=== PATIENT | female | born 1965 | race American Indian/Alaskan Native ===

== ENCOUNTER 2019-07-30 13:04 | Inpatient (IN) | payer OTHER ==
--- NOTE | 2019-07-30 13:50 | Event Note ---
ED Screening Note Date of service: 07/30/19 Time: 13:43 ED Screening Note: 53 y/o female comes in for right side weakness that started yesterday morning. Had stent placed in heart in 2014. 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 This initial assessment/diagnostic orders/clinical plan/treatment(s) is/are subject to change based on patients health status, clinical progression and re- assessment by fellow clinical providers in the ED. Further treatment and workup at subsequent clinical providers discretion. Patient/guardian urged not to elope from the ED as their condition may be serious if not clinically assessed and managed. Initial orders include:
[2019-07-30 14:54] LABS: Creatine Kinase MB 1.1 ng/mL (0.0-4.0)
[2019-07-30 15:03] LABS: Basophils # (Auto) 0.1 K/mm3 (0.0-0.1); Basophils % (Auto) 1.2 % (0.0-1.8); Eosinophils # (Auto) 0.1 K/mm3 (0.0-0.4); Hematocrit 43.6 % (30.3-42.9); Hemoglobin 14.8 gm/dl (10.1-14.3); Lymphocytes % (Auto) 25.6 % (13.4-35.0); Mean Corpuscular HGB Conc 34 % (30-34); Mean Corpuscular Volume 94 fl (79-97); Monocytes # (Auto) 0.6 K/mm3 (0.0-0.8); Platelet Count 244 K/mm3 (140-440); Red Blood Count 4.63 M/mm3 (3.65-5.03); Red Cell Distribution Width 13.7 % (13.2-15.2)
[2019-07-30 15:15] LABS: INR 0.95 (0.87-1.13)
[2019-07-30 15:16] LABS: Partial Thromboplastin Time 34.4 Sec. (24.2-36.6); Thrombin Time 15.6 Sec. (15.1-19.6)
[2019-07-30 16:00] LABS: Amphetamine Screen,Urine PRESUMPTIVE NEGATIVE; Benzodiazepines Screen,Urine PRESUMPTIVE NEGATIVE; Cannabinoid Screen,Urine PRESUMPTIVE NEGATIVE; Cocaine Screen,Urine PRESUMPTIVE NEGATIVE; Methadone Screen,Urine PRESUMPTIVE NEGATIVE; Opiate Screen,Urine PRESUMPTIVE NEGATIVE
[2019-07-30 16:06] LABS: Bacteria,Urine 1+ /HPF (Negative); Bilirubin,Urine NEG (Negative); Blood,Urine SM (Negative); Color,Urine Straw (Yellow); Protein,Urine <15 mg/dL mg/dL (Negative); Urobilinogen,Urine < 2.0 mg/dL (<2.0)
[2019-07-30 16:19] LABS: WBC,Urine < 1.0 /HPF (0.0-6.0)
--- NOTE | 2019-07-30 16:30 | Cat Scan Report ---
CT HEAD WITHOUT CONTRAST INDICATION / CLINICAL INFORMATION: right side weakness. TECHNIQUE: Axial imaging performed from the skull apex through the skull base without the use of cont rast. Sagittal and coronal reformatted images. All CT scans at this location are performed using CT dose reduction for ALARA by means of automated exposure control. COMPARISON: None FINDINGS: CEREBRAL PARENCHYMA: Chronic focal infarct in the right parietal white matter measures 1.3 x 0.6 cm. Chronic infarct in the right caudate nucleus measures 5 mm. The remaining brain parenchyma demonstrat es normal density. The field-white interface is well-defined. HEMORRHAGE: None. EXTRA-AXIAL SPACES: Normal in size and morphology for the patient's age. VENTRICULAR SYSTEM: Normal in size and morphology for the patient's age. MIDLINE SHIFT OR HERNIATION: None. CEREBELLUM / BRAINSTEM: No significant abnormality. CALVARIUM: No significant abnormality. ORBITS: Normal as visualized. PARANASAL SINUSES / MASTOID AIR CELLS: Normal as visualized. SOFT TISSUES of HEAD: No significant abnormality. ADDITIONAL FINDINGS: None. IMPRESSION: Chronic focal infarcts as described above. No acute intracranial process is identified. Signer Name: Ryley Gerard Jr, MD Signed: 07/30/2019 4:25 PM Workstation Name: [id number]
--- NOTE | 2019-07-30 16:51 | Emergency Department Report ---
ED Neuro Deficit HPI - General Chief Complaint: Neuro Symptoms/Deficit Stated Complaint: RT SIDE WEAKNESS Time Seen by Provider: 07/30/19 13:42 Source: patient Mode of arrival: Ambulatory Limitations: No Limitations - History of Present Illness Initial Comments: 53-year-old -Northern Irish female since emergency department complaining of a 2 day history of reported right sided weakness primarily in the right hand and right leg below the knee. States he gets the sensation that she is drunk but reports no blurred vision, chest pain, shortness of breath, fevers, chills, sweats, neck pain, rashes, nausea, vomiting, incontinence. -: days(s) (2) Location: right leg Presenting Symptoms: Present: Weak/Paralyzed One Side (right side) History of same: No Place: home Improves With: none Worsens With: none On Anticoagulants: No Associated Symptoms: denies: chest pain, cough, diaphoresis, loss of appetite, malise, nausea/vomiting, syncope, weakness - Related Data Allergies/Adverse Reactions: Allergies Allergy/AdvReac Type Severity Reaction Status Date / Time No Known Allergies Allergy Unverified 07/30/19 13:44 ED Review of Systems ROS: Stated complaint: RT SIDE WEAKNESS Other details as noted in HPI Comment: All other systems reviewed and negative ED Past Medical Hx - Past Medical History Hx Heart Attack/AMI: Yes (1 stent) - Surgical History Past Surgical History?: Yes Hx Coronary Stent: Yes - Social History Smoking Status: Never Smoker Substance Use Type: None ED Neuro Physical Exam - General Limitations: No Limitations General appearance: alert, in no apparent distress Suspected Stroke: No - Head Head exam: Present: atraumatic, normocephalic - Eye Eye exam: Present: normal appearance, PERRL, EOMI Pupils: Present: normal accommodation - ENT ENT exam: Present: normal exam, normal orophraynx, mucous membranes moist, TM's normal bilaterally - Neck Neck exam: Present: normal inspection - Respiratory Respiratory exam: Present: normal lung sounds bilaterally. Absent: respiratory distress - Cardiovascular Cardiovascular Exam: Present: regular rate, normal rhythm. Absent: systolic murmur, diastolic murmur, rubs, gallop - GI/Abdominal GI/Abdominal exam: Present: soft, normal bowel sounds - Extremities Exam Extremities exam: Present: normal inspection - Back Exam Back exam: Present: normal inspection. Absent: CVA tenderness (R), CVA tenderness (L), paraspinal tenderness - Neurological Exam Neurological exam: Present: alert, oriented X3, CN II-XII intact, reflexes normal, other (no clonus, no Babinski. Normal [id number]. Strength to the right lower extremity is fair. Gait is right side favor and requires assistance) - Psychiatric Psychiatric exam: Present: normal affect, normal mood - Skin Skin exam: Present: warm, dry, intact, normal color. Absent: rash ED Course Vital Signs 07/30/19 07/30/19 07/30/19 13:10 15:14 15:58 Temperature 98.6 F 98.7 F Pulse Rate 61 63 69 Respiratory 16 18 12 Rate Blood Pressure 154/95 Blood Pressure 156/104 162/94 [Right] O2 Sat by Pulse 100 98 100 Oximetry 07/30/19 17:03 Temperature Pulse Rate 60 Respiratory 12 Rate Blood Pressure Blood Pressure 163/98 [Right] O2 Sat by Pulse 100 Oximetry - Consultations Consultation #1: 07/30/19 16:57 Case discussed with hospitalist Dr. Loera for admission states he will come and see the patient at bedside - Lab Data Result diagrams: 07/30/19 13:59 Lab Results 07/30/19 07/30/19 07/30/19 Range/Units 13:48 13:48 13:59 WBC 11.7 H (4.5-11.0) K/mm3 RBC 4.63 (3.65-5.03) M/mm3 Hgb 14.8 H (10.1-14.3) gm/dl Hct 43.6 H (30.3-42.9) % MCV 94 (79-97) fl MCH 32 (28-32) pg MCHC 34 (30-34) % RDW 13.7 (13.2-15.2) % Plt Count 244 (140-440) K/mm3 Lymph % (Auto) 25.6 (13.4-35.0) % [place] % (Auto) 5.0 (0.0-7.3) % Eos % (Auto) 1.0 (0.0-4.3) % Baso % (Auto) 1.2 (0.0-1.8) % Lymph # 3.0 (1.2-5.4) K/mm3 [place] # 0.6 (0.0-0.8) K/mm3 Eos # 0.1 (0.0-0.4) K/mm3 Baso # 0.1 (0.0-0.1) K/mm3 Seg Neutrophils % 67.2 (40.0-70.0) % Seg Neutrophils # 7.9 H (1.8-7.7) K/mm3 PT (12.2-14.9) Sec. INR (0.87-1.13) APTT (24.2-36.6) Sec. Thrombin Time (15.1-19.6) Sec. POC Glucose (70-105) Total Creatine Kinase (30-135) units/L CK-MB (CK-2) (0.0-4.0) ng/mL CK-MB (CK-2) Rel Index (0-4) Troponin T (0.00-0.029) ng/mL Urine Color Straw (Yellow) Urine Turbidity Clear (Clear) Urine pH 7.0 (5.0-7.0) Ur Specific [place] 1.005 (1.003-1.030) Urine Protein <15 mg/dl (Negative) mg/dL Urine Glucose (UA) Neg (Negative) mg/dL Urine Ketones Neg (Negative) mg/dL Urine Blood Sm (Negative) Urine Nitrite Neg (Negative) Urine Bilirubin Neg (Negative) Urine Urobilinogen < 2.0 (<2.0) mg/dL Ur Leukocyte Esterase Neg (Negative) Urine WBC (Auto) < 1.0 (0.0-6.0) /HPF Urine RBC (Auto) 1.0 (0.0-6.0) /HPF U Epithel Cells (Auto) < 1.0 (0-13.0) /HPF Urine Bacteria (Auto) 1+ (Negative) /HPF Urine Opiates Screen Presumptive negative Urine Methadone Screen Presumptive negative Ur Barbiturates Screen Presumptive negative Ur Phencyclidine Scrn Presumptive negative Ur Amphetamines Screen Presumptive negative U Benzodiazepines Scrn Presumptive negative Urine Cocaine Screen Presumptive negative U Marijuana (THC) Screen Presumptive negative Drugs of Abuse Note Disclamer 07/30/19 07/30/19 07/30/19 Range/Units 13:59 13:59 15:28 WBC (4.5-11.0) K/mm3 RBC (3.65-5.03) M/mm3 Hgb (10.1-14.3) gm/dl Hct (30.3-42.9) % MCV (79-97) fl MCH (28-32) pg MCHC (30-34) % RDW (13.2-15.2) % Plt Count (140-440) K/mm3 Lymph % (Auto) (13.4-35.0) % [place] % (Auto) (0.0-7.3) % Eos % (Auto) (0.0-4.3) % Baso % (Auto) (0.0-1.8) % Lymph # (1.2-5.4) K/mm3 [place] # (0.0-0.8) K/mm3 Eos # (0.0-0.4) K/mm3 Baso # (0.0-0.1) K/mm3 Seg Neutrophils % (40.0-70.0) % Seg Neutrophils # (1.8-7.7) K/mm3 PT 12.4 (12.2-14.9) Sec. INR 0.95 (0.87-1.13) APTT 34.4 (24.2-36.6) Sec. Thrombin Time 15.6 (15.1-19.6) Sec. POC Glucose 99 (70-105) Total Creatine Kinase 80 (30-135) units/L CK-MB (CK-2) 1.1 (0.0-4.0) ng/mL CK-MB (CK-2) Rel Index 1.3 (0-4) Troponin T < 0.010 (0.00-0.029) ng/mL Urine Color (Yellow) Urine Turbidity (Clear) Urine pH (5.0-7.0) Ur Specific [place] (1.003-1.030) Urine Protein (Negative) mg/dL Urine Glucose (UA) (Negative) mg/dL Urine Ketones (Negative) mg/dL Urine Blood (Negative) Urine Nitrite (Negative) Urine Bilirubin (Negative) Urine Urobilinogen (<2.0) mg/dL Ur Leukocyte Esterase (Negative) Urine WBC (Auto) (0.0-6.0) /HPF Urine RBC (Auto) (0.0-6.0) /HPF U Epithel Cells (Auto) (0-13.0) /HPF Urine Bacteria (Auto) (Negative) /HPF Urine Opiates Screen Urine Methadone Screen Ur Barbiturates Screen Ur Phencyclidine Scrn Ur Amphetamines Screen U Benzodiazepines Scrn Urine Cocaine Screen U Marijuana (THC) Screen Drugs of Abuse Note - Medical Decision Making 53-year-old Northern [place] female past medical history of cardiovascular disease and myocardial infarction of history of a stent placement presents complaining of a couple day history of weakness of the right hand and below the right knee and sensation feel drunk since the onset. States that her symptoms have been non- progressing but no no improvement. A CT scan show chronic of chronic foci and her laboratory data was essentially benign patient was evaluated by the attending Dr. baldwin due to the nature of antalgic gait to admit for further violation treatment option. The patient present time does not have an outpatient follow-up Critical care attestation.: If time is entered above; I have spent that time in minutes in the direct care of this critically ill patient, excluding procedure time. ED Disposition Clinical Impression: Ataxia Disposition: DC-[id number] OP ADMIT IP TO THIS HOSP Is pt being admited?: No Does the pt Need Aspirin: No Condition: Stable
--- NOTE | 2019-07-30 20:50 | History and Physical Report ---
History of Present Illness Date of examination: 07/30/19 Date of admission: 07/30/19 18:31 Medications and Allergies Allergies Allergy/AdvReac Type Severity Reaction Status Date / Time No Known Allergies Allergy Unverified 07/30/19 13:44 Exam - Constitutional Vitals: Temp Pulse Resp BP Pulse Ox 98.1 F 66 18 165/90 100 07/30/19 19:19 07/30/19 19:19 07/30/19 19:19 07/30/19 19:19 07/30/19 19:19 Results - Labs CBC & Chem 7: 07/30/19 13:59 Labs: Laboratory Last Values WBC 11.7 K/mm3 (4.5-11.0) H 07/30/19 13:59 RBC 4.63 M/mm3 (3.65-5.03) 07/30/19 13:59 Hgb 14.8 gm/dl (10.1-14.3) H 07/30/19 13:59 Hct 43.6 % (30.3-42.9) H 07/30/19 13:59 MCV 94 fl (79-97) 07/30/19 13:59 MCH 32 pg (28-32) 07/30/19 13:59 MCHC 34 % (30-34) 07/30/19 13:59 RDW 13.7 % (13.2-15.2) 07/30/19 13:59 Plt Count 244 K/mm3 (140-440) 07/30/19 13:59 Lymph % (Auto) 25.6 % (13.4-35.0) 07/30/19 13:59 [place] % (Auto) 5.0 % (0.0-7.3) 07/30/19 13:59 Eos % (Auto) 1.0 % (0.0-4.3) 07/30/19 13:59 Baso % (Auto) 1.2 % (0.0-1.8) 07/30/19 13:59 Lymph # 3.0 K/mm3 (1.2-5.4) 07/30/19 13:59 [place] # 0.6 K/mm3 (0.0-0.8) 07/30/19 13:59 Eos # 0.1 K/mm3 (0.0-0.4) 07/30/19 13:59 Baso # 0.1 K/mm3 (0.0-0.1) 07/30/19 13:59 Seg Neutrophils % 67.2 % (40.0-70.0) 07/30/19 13:59 Seg Neutrophils # 7.9 K/mm3 (1.8-7.7) H 07/30/19 13:59 PT 12.4 Sec. (12.2-14.9) 07/30/19 13:59 INR 0.95 (0.87-1.13) 07/30/19 13:59 APTT 34.4 Sec. (24.2-36.6) 07/30/19 13:59 Thrombin Time 15.6 Sec. (15.1-19.6) 07/30/19 13:59 POC Glucose 99 (70-105) 07/30/19 15:28 Total Creatine Kinase 80 units/L (30-135) 07/30/19 13:59 CK-MB (CK-2) 1.1 ng/mL (0.0-4.0) 07/30/19 13:59 CK-MB (CK-2) Rel Index 1.3 (0-4) 07/30/19 13:59 Troponin T < 0.010 ng/mL (0.00-0.029) 07/30/19 13:59 Urine Color Straw (Yellow) 07/30/19 13:48 Urine Turbidity Clear (Clear) 07/30/19 13:48 Urine pH 7.0 (5.0-7.0) 07/30/19 13:48 Ur Specific [place] 1.005 (1.003-1.030) 07/30/19 13:48 Urine Protein <15 mg/dl mg/dL (Negative) 07/30/19 13:48 Urine Glucose (UA) Neg mg/dL (Negative) 07/30/19 13:48 Urine Ketones Neg mg/dL (Negative) 07/30/19 13:48 Urine Blood Sm (Negative) 07/30/19 13:48 Urine Nitrite Neg (Negative) 07/30/19 13:48 Urine Bilirubin Neg (Negative) 07/30/19 13:48 Urine Urobilinogen < 2.0 mg/dL (<2.0) 07/30/19 13:48 Ur Leukocyte Esterase Neg (Negative) 07/30/19 13:48 Urine WBC (Auto) < 1.0 /HPF (0.0-6.0) 07/30/19 13:48 Urine RBC (Auto) 1.0 /HPF (0.0-6.0) 07/30/19 13:48 U Epithel Cells (Auto) < 1.0 /HPF (0-13.0) 07/30/19 13:48 Urine Bacteria (Auto) 1+ /HPF (Negative) 07/30/19 13:48 Urine Opiates Screen Presumptive negative 07/30/19 13:48 Urine Methadone Screen Presumptive negative 07/30/19 13:48 Ur Barbiturates Screen Presumptive negative 07/30/19 13:48 Ur Phencyclidine Scrn Presumptive negative 07/30/19 13:48 Ur Amphetamines Screen Presumptive negative 07/30/19 13:48 U Benzodiazepines Scrn Presumptive negative 07/30/19 13:48 Urine Cocaine Screen Presumptive negative 07/30/19 13:48 U Marijuana (THC) Screen Presumptive negative 07/30/19 13:48 Drugs of Abuse Note Disclamer 07/30/19 13:48
[2019-07-30] MEDS ORDERED: ACETAMINOPHEN 325 MG TAB PO PRN (20:52)
[2019-07-30] MEDS ORDERED: ONDANSETRON 4 MG/2 ML INJ IV PRN (20:52)
[2019-07-30] MEDS ORDERED: HYDROmorphone 1 MG/1 ML INJ IV PRN (20:53)
[2019-07-30] MEDS ORDERED: oxyCODONE /ACETAMINOPHEN 5-325MG TAB PO PRN (20:53)
[2019-07-30] MEDS: LOSARTAN 50 MG TAB PO SCH (21:50)
[2019-07-30] MEDS: ASPIRIN 325 MG TAB PO SCH (21:50)
[2019-07-30] MEDS: SODIUM CHLORIDE 0.9% 1000 ML 1,000 ML IV SCH (21:50)
[2019-07-30] MEDS: FAMOTIDINE 20 MG TAB PO SCH (21:50)
[2019-07-31 05:26] LABS: Basophils # (Auto) 0.1 K/mm3 (0.0-0.1); Basophils % (Auto) 0.5 % (0.0-1.8); Eosinophils # (Auto) 0.2 K/mm3 (0.0-0.4); Eosinophils % (Auto) 2.2 % (0.0-4.3); Hematocrit 38.1 % (30.3-42.9); Lymphocytes # (Auto) 3.2 K/mm3 (1.2-5.4); Lymphocytes % (Auto) 30.3 % (13.4-35.0); Mean Corpuscular HGB Conc 34 % (30-34); Mean Corpuscular Volume 94 fl (79-97); Monocytes # (Auto) 0.7 K/mm3 (0.0-0.8); Monocytes % (Auto) 7.2 % (0.0-7.3); Platelet Count 205 K/mm3 (140-440); Red Blood Count 4.04 M/mm3 (3.65-5.03); Red Cell Distribution Width 13.7 % (13.2-15.2)
[2019-07-31 06:57] LABS: Alanine Aminotransferase 9 units/L (7-56); Albumin 3.7 g/dL (3.9-5); BUN/Creatinine Ratio 13; Blood Urea Nitrogen 10 mg/dL (7-17); Chol/HDL Ratio 4.05 %; HDL Cholesterol 39 mg/dL (40-59); Hemolysis Index 7; LDL Cholesterol,Direct 106 mg/dL (50-130)
--- NOTE | 2019-07-31 06:59 | Event Note ---
Date: 07/30/19 See H/p in reports CVA-w/u
--- NOTE | 2019-07-31 07:55 | History and Physical Report ---
CHIEF COMPLAINT: Right-sided weakness for 2 days. HISTORY OF PRESENT ILLNESS: A 53-year-old -[place] female with history of coronary artery disease and status post one stent, comes in for right-sided weakness of 2 days' duration. The patient has difficulty walking and unsteady while walking. She feels as if she is drunk. No nausea. No vomiting. No nasal regurgitation of fluids. Has some weakness in the right upper and right lower extremity. PAST MEDICAL HISTORY: Coronary artery disease with stent. PAST SURGICAL HISTORY: One stent. SOCIAL HISTORY: Does not smoke. No alcohol. No recreational drugs. FAMILY HISTORY: Hypertension. REVIEW OF SYSTEMS: Significant for right upper and right lower extremity weakness, which is nearly resolving. Otherwise, review of systems negative. PHYSICAL EXAMINATION: GENERAL: Middle-aged female, cooperative during examination. VITAL SIGNS: Blood pressure is 156/100, temperature 98.5, pulse is 60 and respirations are 18. HEENT: Unremarkable. Pupils equal and reactive. NECK: Supple, no lymphadenopathy, no thyromegaly. LUNGS: Clear to auscultation and percussion. Good air entry. CARDIOVASCULAR: S1, S2 heard. No gallop, no murmur, no rub. Apical impulse in left fifth intercostal space and midclavicular line. ABDOMEN: Soft and benign. No hepatosplenomegaly. No guarding, no rigidity. Hernial orifices are normal. EXTREMITIES: Good pedal pulses. No pedal edema. CENTRAL NERVOUS SYSTEM: Alert and oriented x 4. Slight weakness on the right upper and right lower extremity. Able to walk. Power is about 4+/5 in both right upper and right lower extremities. DIAGNOSTIC DATA: EKG reviewed, normal sinus rhythm, no acute ST-T wave changes. Head CT, no acute changes. ASSESSMENT AND PLAN: 1. Cerebrovascular accident workup. The patient has slight weakness. MRI, MRA, carotid duplex scan and echocardiogram ordered. Neurology consult requested. 2. Hypertension. Losartan initiated. 3. Coronary artery disease. Aspirin 81 mg p.o. daily to continue. 4. Deep venous thrombosis prophylaxis. Lovenox 40 mg subcutaneous daily. JOB# [id number] VSM/NTS NELDAD
--- NOTE | 2019-07-31 10:12 | Vascular Lab Report ---
"DUPLEX DOPPLER ULTRASOUND CAROTID, BILATERAL INDICATION: stroke. FINDINGS: RIGHT CAROTID: No significant atherosclerotic plaque. Right ICA peak systolic velocity: 77 cm/sec. Right Vertebral Artery: Antegrade flow. LEFT CAROTID: No significant atherosclerotic plaque. Left ICA peak systolic velocity: 65 cm/sec. Left Vertebral Artery: Antegrade flow. IMPRESSION: 1. Right Internal Carotid Artery: Less than 50% diameter stenosis. 2. Left Internal Carotid Artery: Less than 50% diameter stenosis. Velocity criteria are extrapolated from diameter data as defined by the Society of Radiologists in [place] [facility] [facility] Consensus Conference, Radiology 2003; 229;340-346. Degree of Stenosis (%) || ICA PSV (cm/sec) || Plaque estimate (%) || ICA/CCA PSV Ratio Normal <125 None <2.0 <50 <125 <50 <2.0 50-69 125-230 50 2.0-4.0 70 but less than 100 >230 50 >4.0 Near occlusion High, low, or none visible variable Total occlusion None visible; no lumen N/A Signer Name: Napoleon Barth MD Signed: 07/31/2019 10:08 AM Workstation Name: [id number]"
[2019-07-31] MEDS ORDERED: FLU VACC QUAD 2019-20 (3 YR UP)/PF 60 MCG/0.5 ML SYRINGE IM ONE (11:00)
--- NOTE | 2019-07-31 12:41 | Magnetic Resonance Report ---
MRI BRAIN WITHOUT CONTRAST INDICATION / CLINICAL INFORMATION: stroke. TECHNIQUE: Multisequence, multiplanar images were obtained. COMPARISON: CT head performed 07/30/2019 FINDINGS: CEREBRAL and CEREBELLAR HEMISPHERES: A 7 mm focus of diffusion restriction is identified in the poste rior limb of the left internal capsule on diffusion image 17. No other areas of ischemia are identifi ed. Chronic focal infarcts involving the head of the right caudate nucleus and right parietal periven tricular white matter are again noted. The remaining brain parenchyma demonstrates normal signal on a ll sequences. No evidence of mass or mass effect. No midline shift. No acute hemorrhage. No extra-a xial fluid collection. VENTRICLES: Normal in size and configuration for age. VISUALIZED ORBITS: No significant abnormality. VISUALIZED PARANASAL SINUSES: Minimal mucosal thickening is noted in the right frontal sinus and ethm oid air cells. The remaining sinuses and mastoid air cells are clear. ADDITIONAL FINDINGS: None. IMPRESSION: 7 mm subacute ischemic infarct in the posterior limb of the left internal capsule. Chronic focal infarcts in the right caudate nucleus and right parietal periventricular white matter. Minimal chronic sinus disease. Signer Name: Ryley Gerard Jr, MD Signed: 07/31/2019 12:36 PM Workstation Name: [id number]
[2019-07-31] MEDS: ASPIRIN 325 MG TAB PO SCH (12:59)
[2019-07-31] MEDS: FAMOTIDINE 20 MG TAB PO SCH ×2 (12:59→22:54)
[2019-07-31] MEDS: LOSARTAN 50 MG TAB PO SCH (12:59)
[2019-07-31] MEDS: SODIUM CHLORIDE 0.9% 1000 ML 1,000 ML IV SCH (13:02)
--- NOTE | 2019-07-31 18:24 | Consultation ---
History of Present Illness Consult date: 07/31/19 Reason for Consult: Stroke Chief complaint: Right sided weakness History of present illness: Patient is 53-year-old woman with a history of coronary artery disease, and hypertension. She presents with a 2 day history of right-sided weakness. She states that on her way to work 2 days ago, she began to experience right leg weakness. Later in the day she also noted that she was having difficulty writing, and her right leg weakness had increased. Patient ultimately came to the ER for evaluation. Patient was not on any antihypertensive medications, and was unaware that she had chronic hypertension. She was not on aspirin or Plavix. Patient also has a history of smoking. Past History Past Medical History: CAD, hypertension Social history: smoking Family history: CAD Medications and Allergies Allergies Allergy/AdvReac Type Severity Reaction Status Date / Time No Known Allergies Allergy Unverified 07/30/19 13:44 Active Meds: Active Medications Acetaminophen (Tylenol) 650 mg PO Q4H PRN PRN Reason: Pain MILD(1-3)/Fever >100.5/SANTIAGO Aspirin (Aspirin) 325 mg PO QDAY [facility] Last Admin: 07/31/19 12:59 Dose: 325 mg Documented by: Atorvastatin Calcium (Lipitor) 40 mg PO QHS [facility] Last Admin: 07/30/19 21:50 Dose: 40 mg Documented by: Enoxaparin Sodium (Lovenox) 40 mg SUB-Q QDAY@2200 [facility] Famotidine (Pepcid) 20 mg PO BID [facility] Last Admin: 07/31/19 12:59 Dose: 20 mg Documented by: Hydromorphone HCl (Dilaudid) 0.5 mg IV Q3H PRN PRN Reason: Pain , Severe (7-10) Losartan Potassium (Cozaar) 50 mg PO QDAY [facility] Last Admin: 07/31/19 12:59 Dose: 50 mg Documented by: Ondansetron HCl (Zofran) 4 mg IV Q8H PRN PRN Reason: Nausea And Vomiting Oxycodone/Acetaminophen (Percocet 5/325) 1 tab PO Q6H PRN PRN Reason: Pain, Moderate (4-6) Sodium Chloride (Sodium Chloride Flush Syringe 10 Ml) 10 ml IV BID [facility] Last Admin: 07/31/19 13:03 Dose: 10 ml Documented by: Sodium Chloride (Sodium Chloride Flush Syringe 10 Ml) 10 ml IV PRN PRN PRN Reason: LINE FLUSH Review of Systems All systems: negative Neurological: weakness Physical Examination - Vital Signs Vital Signs: Vital Signs Temp Pulse Resp BP Pulse Ox 98.6 F 61 16 154/95 100 07/30/19 13:10 07/30/19 13:10 07/30/19 13:10 07/30/19 13:10 07/30/19 13:10 - Physical Exam Narrative exam: Patient is awake, alert, oriented 4, follows complex commands. Visual lopez full, pupils equal, round, reactive to light, EOMI, no facial weakness noted, tongue midline, bilaterally intact light touch. Bilaterally intact to light touch in all extremities. 4/5 strength in right upper and lower extremity, 5/5 strength in left upper and lower extremity. 2+ reflexes throughout. Bila terally intact to finger to nose and heel to ordoñez. No dysarthria or aphasia noted. - Constitutional General appearance: comfortable - EENT EENT: Present: ATNC, PERRL, mucous membranes moist, hearing intact, vision intact - Respiratory Respiratory: Present: lungs clear, normal breath sounds - Cardiovascular Cardiovascular: Present: regular rate, normal S1, normal S2 Extremities: Present: no clubbing, cyanosis, no inflammation - Gastrointestinal Gastrointestinal: Present: normoactive bowel sounds, soft, non-tender - Integumentary Integumentary: Present: normal - Musculoskeletal Musculoskeletal: Present: no fluid collection, no pain - Psychiatric Psychiatric: Present: mood/affect appropriate - Level of Consciousness 1a. Level of Consciousness: alert/keenly responsive - LOC Questions 1b. LOC Questions: answers both correctly - LOC Command 1c. LOC Commands: performs tasks correctly - Best Gaze 2. Best Gaze: normal - Visual 3. Visual: no visual loss - Facial Palsy 4. Facial Palsy: normal symmetrical movement - Motor Arm 5a. Motor Arm Left: no drift 5b. Motor Arm Right: no drift - Motor Leg 6a. Motor Leg Left: no drift 6b. Motor Leg Right: no drift - Limb Ataxia 7. Limb Ataxia: absent - Sensory 8. Sensory: normal - Best Language 9. Best Language: no aphasia - Dysarthria 10. Dysarthria: normal - Extinction and Inattention 11. Extinction/Inattention: no abnormality - Scoring Total Score: 0 Stroke Severity: No Stroke Symptoms Results - Laboratory Findings CBC and BMP: 07/31/19 04:36 07/31/19 04:36 Abnormal Lab Findings: Abnormal Labs 07/30/19 07/31/19 13:59 04:36 WBC 11.7 H Hgb 14.8 H Hct 43.6 H Seg Neutrophils # 7.9 H Albumin 3.7 L HDL Cholesterol 39 L Assessment and Plan Patient is 53-year-old woman with a history of coronary artery disease, and hypertension, who presents with a 2 day history of right upper and lower extremity weakness. According the patient's clinical findings, the patient has had an acute ischemic stroke, as is evidenced on MRI. Plan: 1. Stroke - MRI brain revealed left subcortical stroke, likely lacunar. Carotid ultrasound did not reveal any significant stenosis. Echocardiogram pending. We'll check CTA head for any intracranial atherosclerosis. Start patient on aspirin 81 mg daily and Plavix 75 mg daily. Continue dual ant iplatelet therapy with aspirin and Plavix for 1 month, after which Plavix can be stopped. Risks and benefits were discussed with starting both medications, and patient agreed to start both medications. - LDL 106. Cont. statin. Goal LDL <70. Patient agreed to take statin, when risks/benefits/side effects discussed. - PT/OT/ST. DVT prophylaxis: Recommend Lovenox. 2. Hypertension: - Recommend target blood pressure of normotension, as it is been more than 48 hours since onset of symptoms. -Will continue to monitor the patient's neurologic status. Thank you for allowing me to take part in the care of this patient. Alejandro Carnes MD Neurology
--- NOTE | 2019-07-31 18:27 | Progress Note ---
Assessment and Plan Assessment and plan: Patient is a 53 yo woman with a CAD with stent and hypertension who presented Right sided weakness x 2 days. * Brain MRI without contrast IMPRESSION: 7 mm subacute ischemic infarct in the posterior limb of the left internal capsule. Chronic focal infarcts in the right caudate nucleus and right parietal periventricular white matter. Minimal chronic sinus disease. * Carotid Ultrasound Bilateral unremarkable Acute/Subacute ischemic stroke, ?embolic strokes: Neurology consult pending, ECHO pending, treat with ASA and statin. Hypertension: low salt diet, permissive elevation H/O CAD s/p stent; continue medical management DVT ppx: sq heparin History Interval history: Patient was seen and examined. Follow-up on current diagnosis of CVA. No overnight events reported to me. Patient denies any chest pain, shortness breath, nausea/vomiting or severe headaches. Imaging, nursing note, chart, labs and old chart reviewed. Discussed with patient. Hospitalist Physical - Physical exam Narrative exam: Gen: WDWN, NAD, Awake, Alert, Orientated HEENT: NCAT, EOMI, PERRL, OP Clear Neck: supple, no adenopathy, no thyromegaly, no JVD CVS/Heart: RRR, normal S1S2, pulses present bilaterally Chest/Lungs: CTA B, Symmetrical chest expansion, good air entry bilaterally GI/Abdomen: soft, NTND, good bowel sounds, no guarding or rebound /Bladder: no suprapubic tenderness, no CVA or paraspinal tenderness Extermity/Skin: no c/c/e, no obvious rash MSK: FROM x 4, Neuro: CN 2-12 grossly intact, slight right hand grasp weakness Psych: calm - Constitutional Vitals: Temp Pulse Resp BP Pulse Ox 98.4 F 77 18 133/84 98 07/31/19 16:42 07/31/19 16:42 07/31/19 16:42 07/31/19 16:42 07/31/19 16:42 Results - Labs CBC & Chem 7: 07/31/19 04:36 07/31/19 04:36 Labs: Laboratory Last Values WBC 10.4 K/mm3 (4.5-11.0) 07/31/19 04:36 RBC 4.04 M/mm3 (3.65-5.03) 07/31/19 04:36 Hgb 13.0 gm/dl (10.1-14.3) 07/31/19 04:36 Hct 38.1 % (30.3-42.9) 07/31/19 04:36 MCV 94 fl (79-97) 07/31/19 04:36 MCH 32 pg (28-32) 07/31/19 04:36 MCHC 34 % (30-34) 07/31/19 04:36 RDW 13.7 % (13.2-15.2) 07/31/19 04:36 Plt Count 205 K/mm3 (140-440) 07/31/19 04:36 Lymph % (Auto) 30.3 % (13.4-35.0) 07/31/19 04:36 Kinney % (Auto) 7.2 % (0.0-7.3) 07/31/19 04:36 Eos % (Auto) 2.2 % (0.0-4.3) 07/31/19 04:36 Baso % (Auto) 0.5 % (0.0-1.8) 07/31/19 04:36 Lymph # 3.2 K/mm3 (1.2-5.4) 07/31/19 04:36 Kinney # 0.7 K/mm3 (0.0-0.8) 07/31/19 04:36 Eos # 0.2 K/mm3 (0.0-0.4) 07/31/19 04:36 Baso # 0.1 K/mm3 (0.0-0.1) 07/31/19 04:36 Seg Neutrophils % 59.8 % (40.0-70.0) 07/31/19 04:36 Seg Neutrophils # 6.2 K/mm3 (1.8-7.7) 07/31/19 04:36 PT 12.4 Sec. (12.2-14.9) 07/30/19 13:59 INR 0.95 (0.87-1.13) 07/30/19 13:59 APTT 34.4 Sec. (24.2-36.6) 07/30/19 13:59 Thrombin Time 15.6 Sec. (15.1-19.6) 07/30/19 13:59 Sodium 141 mmol/L (137-145) 07/31/19 04:36 Potassium 3.7 mmol/L (3.6-5.0) 07/31/19 04:36 Chloride 103.1 mmol/L (98-107) 07/31/19 04:36 Carbon Dioxide 26 mmol/L (22-30) 07/31/19 04:36 Anion Gap 16 mmol/L 07/31/19 04:36 BUN 10 mg/dL (7-17) 07/31/19 04:36 Creatinine 0.8 mg/dL (0.7-1.2) 07/31/19 04:36 Estimated GFR > 60 ml/min 07/31/19 04:36 BUN/Creatinine Ratio 13 % 07/31/19 04:36 Glucose 95 mg/dL (65-100) 07/31/19 04:36 POC Glucose 99 (70-105) 07/30/19 15:28 Hemoglobin A1c 5.7 % (4-6) 07/30/19 13:59 Calcium 9.0 mg/dL (8.4-10.2) 07/31/19 04:36 Total Bilirubin 0.20 mg/dL (0.1-1.2) 07/31/19 04:36 AST 14 units/L (5-40) 07/31/19 04:36 ALT 9 units/L (7-56) 07/31/19 04:36 Alkaline Phosphatase 94 units/L (35-129) 07/31/19 04:36 Total Creatine Kinase 80 units/L (30-135) 07/30/19 13:59 CK-MB (CK-2) 1.1 ng/mL (0.0-4.0) 07/30/19 13:59 CK-MB (CK-2) Rel Index 1.3 (0-4) 07/30/19 13:59 Troponin T < 0.010 ng/mL (0.00-0.029) 07/30/19 13:59 Total Protein 6.8 g/dL (6.3-8.2) 07/31/19 04:36 Albumin 3.7 g/dL (3.9-5) L 07/31/19 04:36 Albumin/Globulin Ratio 1.2 % 07/31/19 04:36 Triglycerides 108 mg/dL (2-149) 07/31/19 04:36 Cholesterol 158 mg/dL (50-199) 07/31/19 04:36 LDL Cholesterol Direct 106 mg/dL (50-130) 07/31/19 04:36 HDL Cholesterol 39 mg/dL (40-59) L 07/31/19 04:36 Cholesterol/HDL Ratio 4.05 % 07/31/19 04:36 Urine Color Straw (Yellow) 07/30/19 13:48 Urine Turbidity Clear (Clear) 07/30/19 13:48 Urine pH 7.0 (5.0-7.0) 07/30/19 13:48 Ur Specific Enola 1.005 (1.003-1.030) 07/30/19 13:48 Urine Protein <15 mg/dl mg/dL (Negative) 07/30/19 13:48 Urine Glucose (UA) Neg mg/dL (Negative) 07/30/19 13:48 Urine Ketones Neg mg/dL (Negative) 07/30/19 13:48 Urine Blood Sm (Negative) 07/30/19 13:48 Urine Nitrite Neg (Negative) 07/30/19 13:48 Urine Bilirubin Neg (Negative) 07/30/19 13:48 Urine Urobilinogen < 2.0 mg/dL (<2.0) 07/30/19 13:48 Ur Leukocyte Esterase Neg (Negative) 07/30/19 13:48 Urine WBC (Auto) < 1.0 /HPF (0.0-6.0) 07/30/19 13:48 Urine RBC (Auto) 1.0 /HPF (0.0-6.0) 07/30/19 13:48 U Epithel Cells (Auto) < 1.0 /HPF (0-13.0) 07/30/19 13:48 Urine Bacteria (Auto) 1+ /HPF (Negative) 07/30/19 13:48 Urine Opiates Screen Presumptive negative 07/30/19 13:48 Urine Methadone Screen Presumptive negative 07/30/19 13:48 Ur Barbiturates Screen Presumptive negative 07/30/19 13:48 Ur Phencyclidine Scrn Presumptive negative 07/30/19 13:48 Ur Amphetamines Screen Presumptive negative 07/30/19 13:48 U Benzodiazepines Scrn Presumptive negative 07/30/19 13:48 Urine Cocaine Screen Presumptive negative 07/30/19 13:48 U Marijuana (THC) Screen Presumptive negative 07/30/19 13:48 Drugs of Abuse Note Disclamer 07/30/19 13:48 Active Medications - Current Medications Current Medications: Generic Name Dose Route Start Last Admin Trade Name Freq PRN Reason Stop Dose Admin Acetaminophen 650 mg 07/30/19 20:52 Tylenol PO Q4H PRN Pain MILD(1-3)/Fever >100.5/SANTIAGO Aspirin 325 mg 07/30/19 21:00 07/31/19 12:59 Aspirin PO 325 mg QDAY MIRIAN Administration Atorvastatin Calcium 40 mg 07/30/19 22:00 07/30/19 21:50 Lipitor PO 40 mg QHS MIRIAN Administration Enoxaparin Sodium 40 mg 07/31/19 22:00 Lovenox SUB-Q QDAY@2200 MIRIAN Famotidine 20 mg 07/30/19 22:00 07/31/19 12:59 Pepcid PO 20 mg BID MIRIAN Administration Hydromorphone HCl 0.5 mg 07/30/19 20:53 Dilaudid IV Q3H PRN Pain , Severe (7-10) Losartan Potassium 50 mg 07/30/19 21:00 07/31/19 12:59 Cozaar PO 50 mg QDAY MIRIAN Administration Ondansetron HCl 4 mg 07/30/19 20:52 Zofran IV Q8H PRN Nausea And Vomiting Oxycodone/Acetaminophen 1 tab 07/30/19 20:53 Percocet 5/325 PO Q6H PRN Pain, Moderate (4-6) Sodium Chloride 10 ml 07/30/19 22:00 07/31/19 13:03 Sodium Chloride Flush Syringe 10 Ml IV 10 ml BID MIRIAN Administration Sodium Chloride 10 ml 07/30/19 20:52 Sodium Chloride Flush Syringe 10 Ml IV PRN PRN LINE FLUSH
--- NOTE | 2019-07-31 21:13 | Cat Scan Report ---
CTA head with and without IV contrast. CLINICAL HISTORY: Cerebrovascular accident. Technique: Multiple contiguous postcontrast CT images of the head were obtained at 0.63 mm intervals. 3 plane MIP reconstructions were obtained. Precontrast localizing images were also performed. CT scan s at this location are performed using the CT dose reduction for wrenchguys mobile by means of automated exposure control. FINDINGS: No previous exams available for comparison. 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 There is also relative small caliber of the distal left internal carotid artery . However, there is otherwise no significant focal narrowing involving the intracranial vessels at. F urthermore, there is no CTA evidence of intracranial aneurysm. 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 There is no significant focal stenosis involving the intracranial vessels. Signer Name: Vargas Miller MD Signed: 07/31/2019 9:08 PM Workstation Name: [id number]
[2019-07-31] MEDS ORDERED: ENOXAPARIN 40 MG/0.4 ML INJ SUB-Q SCH (22:00)
[2019-07-31] MEDS: HEPARIN 5,000 UNIT/1 ML VIAL SUB-Q SCH (22:55)
[2019-08-01] MEDS ORDERED: ASPIRIN EC 81 MG TAB PO SCH (10:00)
[2019-08-01] MEDS ORDERED: CLOPIDOGREL 75 MG TAB PO SCH (10:00)
[2019-08-01] MEDS: LOSARTAN 50 MG TAB PO SCH (10:18)
[2019-08-01] MEDS: HEPARIN 5,000 UNIT/1 ML VIAL SUB-Q SCH (10:18)
[2019-08-01] MEDS: FAMOTIDINE 20 MG TAB PO SCH (10:19)
[2019-08-01 13:46] VITALS: BP 138/90
--- NOTE | 2019-08-01 15:15 | Progress Note ---
Assessment and Plan Patient is 53-year-old woman with a history of coronary artery disease, and hypertension, who presents with a 2 day history of right upper and lower extremity weakness. According the patient's clinical findings, the patient has had an acute ischemic stroke, as is evidenced on MRI. Plan: 1. Stroke - MRI brain revealed left subcortical stroke, likely lacunar. Carotid ultrasound did not reveal any significant stenosis. Echocardiogram: EF 45-50%, bubble study negative, LA normal size. - CTA head: no significant stenosis Start patient on aspirin 81 mg daily and Plavix 75 mg daily. Continue dual antiplatelet therapy with aspirin and Plavix for 1 month, after which Plavix can be stopped. Risks and benefits were discussed with starting both medications, and patient agreed to start both medications. - LDL 106. Cont. statin. Goal LDL <70. Patient agreed to take statin, when risks/benefits/side effects discussed. - PT/OT/ST. DVT prophylaxis: Recommend Lovenox. 2. Hypertension: - Recommend target blood pressure of normotension, as it is been more than 48 hours since onset of symptoms. -Will sign off as I am not covering neurology service over the weekend. Recommend for neurologist who is covering weekend to be consulted for further neurologic monitoring/management. Thank you for allowing me to take part in the care of this patient. Alejandro Carnes MD Neurology Subjective Date of service: 08/01/19 Principal diagnosis: Stroke Interval history: No acute events overnight. Objective - Exam Narrative Exam: Patient is awake, alert, oriented 4, follows complex commands. Visual lopez full, pupils equal, round, reactive to light, EOMI, no facial weakness noted, tongue midline, bilaterally intact light touch. Bilaterally intact to light touch in all extremities. 4/5 strength in right upper and lower extremity, 5/5 strength in left upper and lower extremity. 2+ reflexes throughout. Bilaterally intact to finger to nose and heel to ordoñez. No dysarthria or aphasia noted. - Vital Sign Vital Signs - 12hr 08/01/19 08/01/19 08/01/19 05:43 09:15 12:07 Temperature 98.0 F 98.6 F Pulse Rate 57 L 70 Respiratory 20 20 Rate Blood Pressure 143/86 138/90 O2 Sat by Pulse 98 98 100 Oximetry - General Apperance Constitutional: comfortable - EENT EENT: ATNC, PERRL, mucous membranes moist, hearing intact, vision intact - Respiratory Respiratory: lungs clear, normal breath sounds - Cardiovascular Cardiovascular: regular rate, normal S1, normal S2 Extremities: no clubbing, cyanosis, no inflammation - Gastrointestinal Gastrointestinal: normoactive bowel sounds, soft, non-tender - Integumentary Integumentary: normal - Musculoskeletal Musculoskeletal: no fluid collection, normal range of motion - Psychiatric Psychiatric: mood/affect appropriate - Laboratory Findings CBC and BMP: 07/31/19 04:36 07/31/19 04:36 Abnormal Lab Findings: Abnormal Labs 07/30/19 07/31/19 13:59 04:36 WBC 11.7 H Hgb 14.8 H Hct 43.6 H Seg Neutrophils # 7.9 H Albumin 3.7 L HDL Cholesterol 39 L
--- NOTE | 2019-08-01 15:25 | Discharge Summary ---
Providers - Providers Date of Admission: 07/31/19 15:20 Date of discharge: 08/01/19 Attending physician: SONY CARRANZA 07/30/19 20:53 Consult to Physician [CONS] Routine Comment: Consulting Provider: DOMINIC MENDOZA Physician Instructions: Reason For Exam: Tia 07/30/19 20:58 Occupational Therapy Evaluate and Treat [CONS] Routine Comment: Reason For Exam: Neuro deficits Physical Therapy Evaluation and Treat [CONS] Routine Comment: Reason For Exam: Neuro deficits Primary care physician: TAP DANCER Hospitalization Condition: Stable Hospital course: Patient is a 53 yo woman with a CAD with stent and hypertension who presented Right sided weakness x 2 days. * Brain MRI without contrast IMPRESSION: 7 mm subacute ischemic infarct in the posterior limb of the left internal capsule. Chronic focal infarcts in the right caudate nucleus and right parietal periventricular white matter. Minimal chronic sinus disease. * Carotid Ultrasound Bilateral unremarkable Discharge Diagnoses: Acute/Subacute ischemic stroke, treat with ASA and statin. 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 Disposition: TO HOME OR SELFCARE Time spent for discharge: 36 minutes Core Measure Documentation - Palliative Care Palliative Care/ Comfort Measures: Not Applicable - Core Measures Any of the following diagnoses?: stroke - VTE Discharge Requirements Deep Vein Thrombosis/Pulmonary Embolism Present on Admission: No Has pt received <5 days of overlap therapy or INR<2.0: No Anticoagulant overlap therapy prescribed at discharge: No Contraindication No Overlap Therapy order at DC: Not Indicated - Stroke Discharge Requirements Statin for LDL = or >70 mg/dl on DC: Yes Anticoag for atrial fib/atrial flutter: No Reason for no anticoag for AF/F on DC: Not Indicated Antithrombotic for ischemic stroke: Yes Exam - Physical Exam Narrative exam: Gen: WDWN, NAD, Awake, Alert, Orientated HEENT: NCAT, EOMI, PERRL, OP Clear Neck: supple, no adenopathy, no thyromegaly, no JVD CVS/Heart: RRR, normal S1S2, pulses present bilaterally Chest/Lungs: CTA B, Symmetrical chest expansion, good air entry bilaterally GI/Abdomen: soft, NTND, good bowel sounds, no guarding or rebound /Bladder: no suprapubic tenderness, no CVA or paraspinal tenderness Extermity/Skin: no c/c/e, no obvious rash MSK: FROM x 4, Neuro: CN 2-12 grossly intact, slight right hand grasp weakness Psych: calm - Constitutional Vitals: Temp Pulse Resp BP Pulse Ox 98.6 F 70 20 138/90 100 08/01/19 12:07 08/01/19 12:07 08/01/19 12:07 08/01/19 12:07 08/01/19 12:07 Plan Activity: other (no strenous activity including driving until cleared by PCP) Diet: low salt Special Instructions: smoking cessation Follow up with: PRIMARY MD SABINE [Primary Care Provider] - 7 Days BAR JOINER MD [Staff Physician] - 08/05/19 9:45 am PACO QIU MD [Staff Physician] - 7 Days Prescriptions: AtorvaSTATin [Lipitor] 40 mg PO QHS #30 tablet Losartan [Cozaar] 50 mg PO QDAY #30 tablet Aspirin EC [Halfprin EC] 81 mg PO QDAY #30 tablet Famotidine [Pepcid] 20 mg PO BID #60 tablet Clopidogrel [Plavix] 75 mg PO QDAY #30 tablet
== END 2019-08-01 16:30 | disposition home or self-care (01) | DRG 65 ==
LOC: ED 13:04 → 3A 18:31 → OBSVTOIN 07-31 15:20
PROVIDERS: ADMIT Internal Medicine; ATTEND Internal Medicine
DX: I63.9 Cerebral infarction, unspecified (principal); G81.91 Hemiplegia, unspecified affecting right dominant side; E78.5 Hyperlipidemia, unspecified; I25.10 Atherosclerotic heart disease of native coronary artery without angina pectoris; I10 Essential (primary) hypertension; I25.2 Old myocardial infarction; Z95.5 Presence of coronary angioplasty implant and graft; Z82.49 Family history of ischemic heart disease and other diseases of the circulatory system; Z79.899 Other long term (current) drug therapy
CPT/HCPCS: 36415; 70450; 70496; 70551; 80053; 80061; 80307; 81001; 82550; 82553; 82962; 83036; 84484; 85025; 85610; 85670; 85730; 90686; 93005; 93010; 93306; 93880; 96374; 99406; G0378; A9270-GY; J1644; J1650; J7030; Q9967